=== PATIENT | male | born 1985 | race Caucasian/White ===

== ENCOUNTER 2018-05-19 03:02 | Emergency (ER) | payer BC, OTHER ==
[~2018-05-19] VITALS: Ht 195.6 cm; Wt 133.0 kg
[2018-05-19 03:07] VITALS: BP 176/103; PULSE 88; RESP 20; Ht 195.6 cm; Wt 133.0 kg
--- NOTE | 2018-05-19 03:59 | ERD ---
ER Documentation Chief Complaint Chief Complaint RIGHT FOOT PAIN X TODAY. STATES METAL MATEO FELL ON FOOT. HPI 33-year-old male, presents the emergency department, complaining of right foot p ain after sustaining a direct injury while the patient was at work. He states that a heavy metal mateo fell onto his foot. The pain is sharp, constant, 8/10. The patient denies distal weakness, numbness or tingling. ROS All systems reviewed and are negative except as per history of present illness. Medications Home Meds Active Scripts Hydrocodone/Acetaminophen ([place] 5-325 Tablet) 1 Each Tablet, 1 TAB PO QHS PRN for PAIN for 5 Days, #5 TAB Prov:ANGEL ROCK MD 05/19/18 Ibuprofen* (Motrin*) 400 Mg Tab, 400 MG PO Q8, #20 TAB Prov:ANGEL ROCK MD 05/19/18 Allergies Allergies: Coded Allergies: No Known Allergies (Verified Allergy, Unknown, 05/19/18) PMhx/Soc Medical and Surgical Hx: pt denies Medical Hx, pt denies Surgical Hx Hx Alcohol Use: No Hx Substance Use: No Hx Tobacco Use: No Smoking Status: Never smoker Physical Exam Vitals Vital Signs Date Temp Pulse Resp B/P (MAP) Pulse Ox O2 O2 Flow FiO2 Time Delivery Rate 05/19/18 99.2 88 20 176/103 98 03:07 (127) Physical Exam Const: No acute distress Head: Atraumatic Eyes: Normal Conjunctiva ENT: Normal External Ears, Nose and Mouth. Neck: Full range of motion. No meningismus. Resp: Clear to auscultation bilaterally Cardio: Regular rate and rhythm, no murmurs Abd: Soft, non tender, non distended. Normal bowel sounds Skin: No petechiae or rashes Back: No midline or flank tenderness Ext: Right foot: Significant tenderness and edema of the right great toe and the second digit, distal neurovascular exam intact. Neur: Awake and alert Psych: Normal Mood and Affect Results 24 hrs Current Medications Medications Dose Sig/Chance Start Time Status Last (Trade) Ordered Route PRN Stop Time Admin Dose Reason Admin 650 mg ONCE ONCE 05/19/18 DC 05/19/18 Acetaminophen PO 04:30 04:16 (Tylenol 05/19/18 04:31 Tab) Ibuprofen 600 mg ONCE ONCE 05/19/18 DC 05/19/18 (Motrin) PO 04:30 04:16 05/19/18 04:31 Patient: KINDRA MONK : 1985 Age: 33 Sex: M MR #: [id number] DOS: 05/19/18 0402 Ordering MD: ANGEL ROCK MD Location: [facility] Room/Bed: PROCEDURE: X-ray right foot CLINICAL INDICATION: Pain. Trauma. TECHNIQUE: VIEWS: 3 IMAGES: 3 COMPARISON: None. FINDINGS: OSSEOUS STRUCTURES Fractures: Mildly displaced comminuted fracture of the first toe tuft is present. Slightly fracture of the second distal phalanx base also appears to be present without displacement. Slight heterotopic ossification is noted around the first and second distal phalanges. JOINTS Joint Space(s): Preserved. OTHER FINDINGS: Small plantar calcaneal enthesophyte is noted. IMPRESSION: 1. Displaced comminuted fracture of the first toe tuft. 2. Slight fracture of the second distal phalanx base is also suggested. Procedures/MDM Differential diagnosis considered include but not limited are: sprain/strain, ligament injury, fracture, dislocation, low suspicion for acute infectious process. Soft compartments, neurovascular exam grossly intact. Physical examination and clinical presentation consistent with Displaced comminuted fracture of the right first toe tuft and Slight fracture of the right second distal phalanx base. During the ED course the patient received treatment with right leg posterior splint and crutches presenting overall improvement of the symptoms. Splint evaluation: Type: Short leg posterior Location: Right lower extremity Position: good alignment in anatomical position Neurovascular intact Results and clinical impression discussed with patient who agrees with management. The patient is stable to be treated outpatient and will be discharged home with recommendations for Ortho evaluation RAPHAEL, meanwhile, ice, rest and partial immobilization. NSAIDs 3 times daily for 5 days and close monitoring. The patient was instructed to follow up with the primary care provider in the next 48h. If symptoms persist, worsen or new symptoms develop, then patient should return to the ED immediately. Instructions explained and given to patient with acknowledgment and demonstrated understanding. Disclaimer: Inadvertent spelling and grammatical errors are likely due to EHR/dictation software use and do not reflect on the overall quality of patient care. Also, please note that the electronic time recorded on this note does not necessarily reflect the actual time of the patient encounter. Departure Diagnosis: Primary Impression: Displaced fracture of distal phalanx of right great toe Additional Impressions: Nondisplaced fracture of distal phalanx of right lesser toe(s), initial encounter for closed fracture Work related injury Condition: Stable Additional Instructions: Thank you very much for allowing us to participate in your care. Your health and safety is our top priority at [facility]. Call your primary care doctor TOMORROW for an appointment during the next 2-4 days and bring all the information and medications prescribed. Have prescriptions filled and follow precisely the directions on the label. If the symptoms get worse and your provider is unavailable, return to the Emergency Department immediately. ANGEL ROCK MD May 19, 2018 03:59
[2018-05-19] MEDS ORDERED: ACETAMINOPHEN 325 MG TAB PO ONE (04:30)
[2018-05-19] MEDS ORDERED: IBUPROFEN 600 MG TAB PO ONE (04:30)
[2018-05-19] MEDS ORDERED: IBUP-1561 PO (04:54)
[2018-05-19] MEDS ORDERED: HYDR-4011 PO (04:55)
== END 2018-05-19 06:07 | disposition home or self-care (01) ==
LOC: FTE 03:02
DX: S92.421A Displaced fracture of distal phalanx of right great toe, initial encounter for closed fracture (principal); S92.534A Nondisplaced fracture of distal phalanx of right lesser toe(s), initial encounter for closed fracture; W20.8XXA Other cause of strike by thrown, projected or falling object, initial encounter; Y92.89 Other specified places as the place of occurrence of the external cause
CPT/HCPCS: 73630